=== PATIENT | female | born 1975 | race Caucasian/White ===

== ENCOUNTER 2021-05-29 12:12 | Emergency (ER) | payer OTHER, SELFPAY ==
[2021-05-29] VITALS (15 sets, daily range): BP systolic 134–179; BP diastolic 63–91; PULSE 70–79; RESP 18–38; TEMP 36.3; O2SAT 93–99
[2021-05-29 13:08] LABS: Add Manual Diff / Slide Review NO; Basophils Absolute Auto 0 /uL (0-100); Basophils Percent Auto 0.4 % (0-2); Eosinophils Absolute Auto 100 /uL (0-450); Hematocrit 40.6 % (36-46); Hemoglobin 13.5 g/dL (12.0-16.0); Lymphocytes Absolute Auto 1100 /uL (1100-4500); Lymphocytes Percent Auto 11.6 % (25-40); Mean Corpuscular HGB Conc 33.2 % (30-36); Mean Corpuscular Hemoglobin 26.4 PG (26-34); Mean Corpuscular Volume 79.4 fL (80-100); Monocytes Absolute Auto 500 /uL (0-900); Monocytes Percent Auto 5.1 % (3-14); Neutrophils Absolute Auto 7900 /uL (1500-7000); Neutrophils Percent Auto 81.9 % (50-75); Platelet Count 299 X10^3/uL (150-400); Red Blood Cell Count 5.12 X10^6/uL (4.0-5.2); Red Cell Distribution Width 16.4 % (11.6-14.8); White Blood Cell Count 9.6 X10^3/uL (4.5-11.0)
[2021-05-29 13:16] LABS: INR 1.1 (0.9-1.3)
[2021-05-29 13:19] LABS: PTT Partial Thromboplastin Tim 37 SECONDS (26.4-36.2)
[2021-05-29 13:22] LABS: Alanine Aminotransferase 63 IU/L (<35); Albumin 4.6 g/dL (3.5-5.0); Albumin Globulin Ratio 1.2 (1.0-2.8); Alkaline Phosphatase 77 U/L (38-126); Aspartate Aminotransferase 52 IU/L (14-36); BUN Creatinine Ratio 31.1 (6-22); Bilirubin Total 0.3 mg/dL (0.2-1.3); Blood Urea Nitrogen 14 mg/dL (7-17); Calcium 9.2 mg/dL (8.4-10.2); Carbon Dioxide 31 mmol/L (22-32); Chloride 104 mmol/L (98-107); Creatine Kinase 170 U/L (30-135); Estimated Glomerular Filt Rate > 60.0 mL/min (>60); Globulin 3.7 g/dL (1.7-4.1); Glucose 102 mg/dL (70-100); HEMOLYSIS < 15 (0-50); Lipase 129 U/L (23-300); Magnesium 2.1 mg/dL (1.6-2.3); Sodium 141 mmol/L (137-145); Total Protein 8.3 g/dL (6.3-8.2)
--- NOTE | 2021-05-29 13:26 | DI.RAD.S_ITS ---
PROCEDURE: XR CHEST 1V INDICATIONS: chest pain/SOB TECHNIQUE: One view of the chest was acquired. COMPARISON: None. FINDINGS: Surgical changes and devices: None. Lungs and pleura: Mild pulmonary vascular congestion is seen. No definite focal infiltrate. No pleural effusions or pneumothorax. Mediastinum: Mediastinal contours appear normal tortuous thoracic aorta is seen. Heart size is enlarged. Bones and chest wall: No suspicious bony lesions. Overlying soft tissues appear unremarkable. IMPRESSION: Cardiomegaly and mild congestion. No focal infiltrate, pleural effusion or pneumothorax. Dictated by: Rupert Santos M.D. on 05/29/2021 at 15:02 Approved by: Rupert Santos M.D. on 05/29/2021 at 15:02
[2021-05-29 13:29] LABS: COVID19 -Nasal RAPID Negative (Negative)
[2021-05-29 13:33] LABS: NT-proBNP (BNP-Adult 18+) 31 pg/mL (<125); Troponin I < 0.012 ng/mL (0.01-0.034)
[2021-05-29 13:37] LABS: CKMB % Relative Index 0.4 % (1.5-5.0); Creatine Kinase MB 0.67 ng/mL (<2.37)
[2021-05-29 14:49] LABS: D Dimer < 200 ng/mL (<230)
--- NOTE | 2021-05-29 15:09 | ED_ITS ---
HPI - SOB/Dyspnea General Chief Complaint: Shortness of Breath/Dyspnea Stated Complaint: Thinks Severe Reaction to Antibotics Time Seen by Provider: 05/29/21 13:26 Source: patient Mode of arrival: Ambulatory Limitations: no limitations History of Present Illness HPI Narrative: This is a 45-year-old female with known history of cardiomegaly, recent diagnosis of MELVI and started using CPAP machine a week ago and who was diagnosed with chlamydia and PID several weeks ago in [place]. Patient states that both she and her have been treated but to have reinfected each other and had recurrent treatment for chlamydia. She has been on multiple antibiotics including cefixime, azithromycin, flagyl adjust prior doxycycline. She stop doxycycline prior to adverse reaction. She is currently actively taking Flagyl but no other antibiotics. 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 She complains of tingling all over her body from head to toe, she denies chest pain or pressure but has had some shortness of breath that time, she has had muscle aches, chills but no objective fevers. She she has not had any persiste nt nausea and vomiting. No new GI or urinary symptoms. No syncope. She has had mild swelling of her hands and feet. He she does not have any known allergies. She has not had any rashes or skin changes, no swelling of her lips, airway or oropharynx, she has not had any itching or hives. No tobacco, occasional alcohol, occasional THC but no other illicit. Related Data Previous Rx's Medication Instructions Recorded hydrochlorothiazide 12.5 mg tablet 12.5 mg PO DAILY #7 tab 05/29/21 Allergies Allergy/AdvReac Type Severity Reaction Status Date / Time No Known Drug Allergies Allergy Verified 05/29/21 12:45 Review of Systems Review of Systems ROS Unobtainable: All systems reviewed & are unremarkable except as noted in HPI and below Patient History Social History Smoking Status: Never smoker Smoking Status: Never smoker alcohol intake frequency: 0-2 drinks per day Substance Use Type: marijuana Exam Narrative Exam Narrative: GENERAL: Alert and oriented x three, obese female in distress HEENT: Head normocephalic, atraumatic, EOMI, pupils reactive, face symmetric, moist mucous membranes, no facial swelling. NECK: Supple, full range of motion CARDIOVASCULAR: Regular rate and rhythm without murmurs, rubs or gallops. RESPIRATORY: Breath sounds equal bilaterally, no wheezes rales or rhonchi. ABDOMEN: Soft, nontender. Normoactive bowel sounds all 4 quadrants. No guarding or rebound, rigidity, no mass : No CVA tenderness EXTREMITIES: Normal range of motion, no clubbing or edema. Neurovascularly intact NEUROLOGICAL: Cranial nerves II through XII grossly intact. Moving all extremities. Normal gait. SKIN: Warm, dry, no petechiae, no rashes or lesions. Initial Vital Signs Initial Vital Signs: Vital Signs Temperature 97.3 F L 05/29/21 12:38 Pulse Rate 70 05/29/21 12:38 Respiratory Rate 18 05/29/21 12:38 Blood Pressure 179/91 H 05/29/21 12:38 Pulse Oximetry 99 05/29/21 12:38 Course Orders Ordered: ED Orders 05/29/21 12:55 BNP [NT-proBNP (BNP-Adult 18+)] Stat COVID19 -Nasal swab/Pre-Proc Stat Complete Blood Count AUTO DIFF Stat Comprehensive Metabolic Panel Stat Lipase Stat Magnesium Stat Partial Thromboplastin Time Stat Prothrombin Time INR Stat Troponin & CK Cardiac Panel Stat 05/29/21 13:07 EKG-12 Lead Stat 05/29/21 13:26 Chest [XR chest 1V] Stat 05/29/21 14:17 D Dimer Stat Reevaluation(s) Reevaluation #1: Patient was prescribed azithromycin 1000 mg that she was post to take on day 1 and then repeat on days 7. Reviewed current guidelines this there may be different guidelines in [place] but reviewed that she should be fully and appropriately treated for her gonorrhea chlamydia based on the prescriptions that she presents with today. Because of recurrent episodes I would recommend that post she had her be retested before resuming sexual activity. Also reviewed patient's labs and findings today. Vital Signs Vital signs: Vital Signs - 8 hr 05/29/21 12:38 05/29/21 13:25 05/29/21 13:26 Temperature 97.3 F L Pulse Rate 70 74 Pulse Rate [Orthostatic Lying] Pulse Rate [Orthostatic Sitting] Pulse Rate [Orthostatic Standing] Respiratory Rate 18 Blood Pressure 179/91 H 134/63 Blood Pressure [Orthostatic Lying] Blood Pressure [Orthostatic Sitting] Blood Pressure [Orthostatic Standing] Pulse Oximetry 99 96 97 05/29/21 13:30 05/29/21 13:59 05/29/21 14:00 Temperature Pulse Rate 71 73 71 Pulse Rate [Orthostatic Lying] Pulse Rate [Orthostatic Sitting] Pulse Rate [Orthostatic Standing] Respiratory Rate 20 23 22 Blood Pressure 140/66 141/66 H 138/65 Blood Pressure [Orthostatic Lying] Blood Pressure [Orthostatic Sitting] Blood Pressure [Orthostatic Standing] Pulse Oximetry 98 96 96 05/29/21 14:30 05/29/21 14:31 05/29/21 14:35 Temperature Pulse Rate 74 74 74 Pulse Rate [Orthostatic Lying] Pulse Rate [Orthostatic Sitting] Pulse Rate [Orthostatic Standing] Respiratory Rate 24 19 30 H Blood Pressure 140/70 160/78 H Blood Pressure [Orthostatic Lying] Blood Pressure [Orthostatic Sitting] Blood Pressure [Orthostatic Standing] Pulse Oximetry 99 98 97 05/29/21 14:36 05/29/21 14:39 05/29/21 15:00 Temperature Pulse Rate 79 72 Pulse Rate [Orthostatic Lying] 73 Pulse Rate [Orthostatic Sitting] 76 Pulse Rate [Orthostatic Standing] 77 Respiratory Rate 28 H 24 Blood Pressure 168/85 H Blood Pressure [Orthostatic Lying] 140/70 Blood Pressure [Orthostatic Sitting] 160/78 H Blood Pressure [Orthostatic Standing] 168/85 H Pulse Oximetry 96 95 05/29/21 15:30 05/29/21 16:00 05/29/21 16:10 Temperature Pulse Rate 76 75 77 Pulse Rate [Orthostatic Lying] Pulse Rate [Orthostatic Sitting] Pulse Rate [Orthostatic Standing] Respiratory Rate 38 H 27 H 31 H Blood Pressure 152/68 H Blood Pressure [Orthostatic Lying] Blood Pressure [Orthostatic Sitting] Blood Pressure [Orthostatic Standing] Pulse Oximetry 94 93 MDM - SOB/Dyspnea Lab Data Result diagrams: 05/29/21 12:55 05/29/21 12:55 Labs: Lab Results 05/29/21 05/29/21 05/29/21 Range/Units 12:55 12:55 12:55 WBC 9.6 (4.5-11.0) X10^3/uL RBC 5.12 (4.0-5.2) X10^6/uL Hgb 13.5 (12.0-16.0) g/dL Hct 40.6 (36-46) % MCV 79.4 L (80-100) fL MCH 26.4 (26-34) PG MCHC 33.2 (30-36) % RDW 16.4 H (11.6-14.8) % Plt Count 299 (150-400) X10^3/uL Neut % (Auto) 81.9 H (50-75) % Lymph % (Auto) 11.6 L (25-40) % [place] % (Auto) 5.1 (3-14) % Eos % (Auto) 1.0 L (2-4) % Baso % (Auto) 0.4 (0-2) % Neut # (Auto) 7900 H (5513-8721) /uL Lymph # (Auto) 1100 (4741-0068) /uL [place] # (Auto) 500 (0-900) /uL Eos # (Auto) 100 (0-450) /uL Baso # (Auto) 0 (0-100) /uL PT 12.0 (10.1-12.7) SECONDS INR 1.1 (0.9-1.3) APTT 37 H (26.4-36.2) SECONDS D-Dimer (<230) ng/mL Sodium 141 (137-145) mmol/L Potassium 4.0 (3.4-5.1) mmol/L Chloride 104 (98-107) mmol/L Carbon Dioxide 31 (22-32) mmol/L BUN 14 (7-17) mg/dL Creatinine 0.45 L (0.52-1.04) mg/dL Estimated GFR > 60.0 (>60) mL/min BUN/Creatinine Ratio 31.1 H (6-22) Glucose 102 H (70-100) mg/dL Calcium 9.2 (8.4-10.2) mg/dL Magnesium 2.1 (1.6-2.3) mg/dL Total Bilirubin 0.3 (0.2-1.3) mg/dL AST 52 H (14-36) IU/L ALT 63 H (<35) IU/L Alkaline Phosphatase 77 (38-126) U/L Total Creatine Kinase 170 H (30-135) U/L CK-MB (CK-2) 0.67 (<2.37) ng/mL CK-MB (CK-2) Rel Index 0.4 L (1.5-5.0) % Troponin I < 0.012 (0.01-0.034) ng/mL NT-Pro-B Natriuret Pep 31 (<125) pg/mL Total Protein 8.3 H (6.3-8.2) g/dL Albumin 4.6 (3.5-5.0) g/dL Globulin 3.7 (1.7-4.1) g/dL Albumin/Globulin Ratio 1.2 (1.0-2.8) Lipase 129 (23-300) U/L SARS-CoV-2 (PCR) (Negative) 05/29/21 05/29/21 Range/Units 12:55 14:17 WBC (4.5-11.0) X10^3/uL RBC (4.0-5.2) X10^6/uL Hgb (12.0-16.0) g/dL Hct (36-46) % MCV (80-100) fL MCH (26-34) PG MCHC (30-36) % RDW (11.6-14.8) % Plt Count (150-400) X10^3/uL Neut % (Auto) (50-75) % Lymph % (Auto) (25-40) % [place] % (Auto) (3-14) % Eos % (Auto) (2-4) % Baso % (Auto) (0-2) % Neut # (Auto) (0864-4166) /uL Lymph # (Auto) (7665-0507) /uL [place] # (Auto) (0-900) /uL Eos # (Auto) (0-450) /uL Baso # (Auto) (0-100) /uL PT (10.1-12.7) SECONDS INR (0.9-1.3) APTT (26.4-36.2) SECONDS D-Dimer < 200 (<230) ng/mL Sodium (137-145) mmol/L Potassium (3.4-5.1) mmol/L Chloride (98-107) mmol/L Carbon Dioxide (22-32) mmol/L BUN (7-17) mg/dL Creatinine (0.52-1.04) mg/dL Estimated GFR (>60) mL/min BUN/Creatinine Ratio (6-22) Glucose (70-100) mg/dL Calcium (8.4-10.2) mg/dL Magnesium (1.6-2.3) mg/dL Total Bilirubin (0.2-1.3) mg/dL AST (14-36) IU/L ALT (<35) IU/L Alkaline Phosphatase (38-126) U/L Total Creatine Kinase (30-135) U/L CK-MB (CK-2) (<2.37) ng/mL CK-MB (CK-2) Rel Index (1.5-5.0) % Troponin I (0.01-0.034) ng/mL NT-Pro-B Natriuret Pep (<125) pg/mL Total Protein (6.3-8.2) g/dL Albumin (3.5-5.0) g/dL Globulin (1.7-4.1) g/dL Albumin/Globulin Ratio (1.0-2.8) Lipase (23-300) U/L SARS-CoV-2 (PCR) Negative (Negative) Point of Care Testing Test Results Negative Glucose POC 96 Urine Dip Bedside Urine Glucose Negative Bedside Urine Bilirubin - Negative Bedside Urine Ketone - Negative Urine Specific [place] 1.015 Bedside Urine Occult Blood - Negative Bedside Urine pH 6.5 Bedside Urine Protein - Negative Bedside Urine Urobilinogen - Negative Bedside Urine Nitrite - Negative Bedside Urine Leukocytes - Negative Esterase Imaging Data Chest x-ray: Radiologist's Impression: [address] [address] XRay Report Signed Patient: Coco Jose MR#: [id number] : 1975 Acct:[id number] Age/Sex: 45 / F Date of Service: 05/29/21 Loc: ED Accession Number: [id number] ?? Procedure: XR chest 1V Ordering Provider: Nara Morgan D.O. PROCEDURE:? XR CHEST 1V ? INDICATIONS:? chest pain/SOB ? TECHNIQUE:? One view of the chest was acquired.? ? COMPARISON:? None. ? FINDINGS:? ? Surgical changes and devices:? None.? ? Lungs and pleura:? Mild pulmonary vascular congestion is seen.? No definite focal infiltrate.? No pleural effusions or pneumothorax.? ? Mediastinum:? Mediastinal contours appear normal tortuous thoracic aorta is seen.? Heart size is enlarged.? ? Bones and chest wall:? No suspicious bony lesions.? Overlying soft tissues daisy ear unremarkable.? ? IMPRESSION:? Cardiomegaly and mild congestion.? No focal infiltrate, pleural ef fusion or pneumothorax. ? ? Dictated by: Rupert Santos M.D. on 05/29/2021 at 15:02 ? ? Approved by: Rupert Santos M.D. on 05/29/2021 at 15:02? ECG Data Attestation: I personally reviewed and interpreted this ECG as follows: Prior ECG tracings: not available for review Interpretation: NSR, rate of 69, NM 122, QRS of 86, QTC 430. No acute ST changes appreciated. No priors for comparison. MDM Narrative Medical decision making narrative: This is a 45-year-old female who has been on multiple antibiotics for chlamydia. Patient took azithromycin, she is on Flagyl, she has taken cefexime orally. Patient states she feels like she is having a reaction antibiotics which includes tingling all over her body. She has occasionally had shortness of breath. Patient does have some risk factors for DVT with obesity and travel as she flew from [facility] to travel to [place]. Patient's show no acute EKG changes, CBC, CMP show very mild elevation LFTs, negative troponin with negative BN P. D- dimer is negative. Patient and I discussed that I don't think she is having an allergic reaction to Flagyl but may be having adverse reaction. Reviewed wide differential. We also reviewed that would be beneficial to be retested for gonorrhea and chlamydia prior to resuming sexual activity. She does have known cardiomegaly which she states was diagnosed when she was living in [facility]. She is not currently on any medications for it she has an echo scheduled for tomorrow which I encouraged her to attend. Patient has had some mild swelling in all 4 extremities so recommended short course of hydrochlorothiazide see if this improves her symptoms. Discharge Plan Departure Patient Disposition: Home Clinical Impression: Cardiomegaly Activity Restrictions/Additional Instructions: Follow-up with your physician. Follow-up for your tomorrow I think this will be helpful to evaluate your enlarged heart or cardiomegaly. I would take diuretic once daily for the next several days to see if this improves your symptoms. Prescription sent to [facility] in [place]. If you are able to tolerate I would continue the Flagyl until completed. I do not think you are having an allergic reaction today. Your antibiotic regimen is appropriate although typically in the [place] we only give Azithromycin 1000mg once. There may be a different treatment protocol in [place]. Please return for fevers, new chest pain or shortness of breath, persistent vomiting, passing out, increasing swelling in her extremities or other new or c oncerning symptoms. Prescriptions: New hydrochlorothiazide 12.5 mg tablet 12.5 mg PO DAILY Qty: 7 0RF
== END 2021-05-29 16:23 | disposition home or self-care (01) ==
PROVIDERS: Emergency Provider Emergency Medicine
DX: R20.2 Paresthesia of skin (principal); I51.7 Cardiomegaly; R06.02 Shortness of breath; Z20.822 Contact with and (suspected) exposure to COVID-19
CPT/HCPCS: 36415; 71045; 80053; 81003; 81025; 82550; 82553; 82962; 83690; 83735; 83880; 84484; 85025; 85379; 85610; 85730; 87635; 93005; 99284; C9803